=== PATIENT | male | born 1985 | race Caucasian/White ===

== ENCOUNTER 2023-04-12 05:22 | Emergency (ER) | payer OTHER ==
[~2023-04-12] VITALS: Ht 170.2 cm; Wt 97.5 kg
[2023-04-12] MEDS ORDERED: KETOROLAC TROMETHAMINE 60 MG VIAL IM STA (06:25)
[2023-04-12] MEDS ORDERED: ZANAFLEX4 MG PO (06:59)
[2023-04-12] MEDS ORDERED: KETO10TA2 PO (06:59)
== END 2023-04-12 07:06 ==
LOC: ER 05:22
DX: S46.911A Strain of unspecified muscle, fascia and tendon at shoulder and upper arm level, right arm, initial encounter (principal); X58.XXXA Exposure to other specified factors, initial encounter; Y93.9 Activity, unspecified; Y92.9 Unspecified place or not applicable; Y99.9 Unspecified external cause status; M75.31 Calcific tendinitis of right shoulder

== ENCOUNTER 2024-01-23 13:02 | Emergency (ER) | payer OTHER ==
[~2024-01-23] VITALS: Ht 170.2 cm; Wt 93.4 kg
[~2024-01-23 13:02] MED LIST: KETO10TA2 PO; ZANAFLEX4 MG PO
[2024-01-23 13:31] VITALS: BP 134/89; O2SAT 100
[2024-01-23] MEDS ORDERED: LOSARTAN POTASS25 MG PO (13:31)
[2024-01-23] MEDS ORDERED: TOPROL XL25 M1 PO (13:31)
[2024-01-23 15:54] LABS: HEMATOCRIT 42.3 % (39.0-48.0); HEMOGLOBIN 14.5 g/dL (13-16.00); MEAN CELL VOLUME 83.8 fL (80.0-100.00); MEAN CORPUSCULAR HEMOGLOBIN 28.7 pg (27.00-32.0); MEAN CORPUSCULAR HGB CONC 34.3 g/dl (32.0-36.0); PLATELET COUNT 289 K/uL (150-450); RED BLOOD COUNT 5.04 M/uL (4.00-6.00); RED CELL DISTRIBUTION WIDTH 13.2 % (11.5-14.5)
[2024-01-23 16:31] LABS: BILIRUBIN TOTAL 0.66 mg/dL (0.3-1.2); CALCIUM 9.5 mg/dL (8.5-10.1); CREATININE SERUM 1.14 mg/dL (0.70-1.30); GFR 71.14; GLOBULINA 2.9 G/DL (2.4-3.5); POTASSIUM 3.84 mEq/L (3.5-5.1); TOTAL PROTEIN 6.9 gm/dL (6.4-8.2)
[2024-01-23] MEDS ORDERED: VISTARIL25 MG PO (17:06)
== END 2024-01-23 17:56 | disposition home or self-care (01) ==
LOC: ER 13:04
PROVIDERS: Nurse Practitioner Family
DX: R20.2 Paresthesia of skin (principal); R20.0 Anesthesia of skin; I10 Essential (primary) hypertension